=== PATIENT | male | born 1950 | race Caucasian/White ===

== ENCOUNTER 2019-07-19 14:32 | Inpatient (IN) ==
[2019-07-19] MEDS ORDERED: HumuLIN R SUBCUT PRN (15:17)
[2019-07-19] MEDS ORDERED: STERILE WATER IRRIGATION IR ONE (16:09)
[2019-07-19 16:12] LABS: BASOPHILS # (AUTO) 0.1 X10^3/uL (0.0-0.1); BASOPHILS % (AUTO) 0.9 % (0.2-1.0); EOSINOPHILS # (AUTO) 0.1 x10^3/uL (0.0-0.2); EOSINOPHILS % (AUTO) 1.7 % (0.9-2.9); HEMOGLOBIN 13.1 g/dL (13.5-18.0); LYMPHOCYTES # (AUTO) 1.6 X10^3/uL (1.3-2.9); LYMPHOCYTES % (AUTO) 20.5 % (21.0-51.0); MEAN CORPUSCULAR HEMOGLOBIN 28.4 pg (27.0-34.0); MEAN CORPUSCULAR HGB CONC 34.5 g/dL (33.0-35.0); MEAN CORPUSCULAR VOLUME 82.3 fL (80.0-100.0); MEAN PLATELET VOLUME 9.9 fL (7.4-11.0); MONOCYTES # (AUTO) 0.7 x10^3/uL (0.3-0.8); MONOCYTES % (AUTO) 9.4 % (0.0-13.0); NEUTROPHILS # (AUTO) 5.2 x10^3/uL (2.2-4.8); NEUTROPHILS % (AUTO) 67.5 % (42.0-75.0); PLATELET COUNT 178 X10^3/uL (150.0-450.0); RED BLOOD COUNT 4.62 X10^6/uL (4.7-6.0); RED CELL DISTRIBUTION WIDTH 13.3 % (11.6-16.5); WHITE BLOOD COUNT 7.6 X10^3/uL (3.6-10.0)
[2019-07-19 16:16] VITALS: BMI 37.1
[2019-07-19] MEDS ORDERED: XYLOCAINE 1 % (PLAIN) ONE (16:22)
[2019-07-19 16:25] LABS: ALANINE AMINOTRANSFERASE 10 Units/L (12-78); ALBUMIN 3.6 g/dL (3.4-5.0); ALKALINE PHOSPHATASE 55 Units/L (46-116); ASPARTATE AMINO TRANSFERASE 10 Units/L (15-37); BLOOD UREA NITROGEN 8 mg/dL (7-18); CARBON DIOXIDE 27.2 mmol/L (21-32); CHLORIDE 103 mmol/L (98-107); CREATININE 1.03 mg/dL (0.70-1.30); SODIUM 141 mmol/L (136-145); TOTAL PROTEIN 7.2 g/dL (6.4-8.2); eGFR NON BLACK RACES > 60 (>60)
[2019-07-19 16:59] LABS: ERYTHROCYTE SEDIMENTATION RATE 26 MM/HOUR (0-15)
[2019-07-19] MEDS ORDERED: POTASSIUM CHL 60 MEQ/NS 0.45% 500 ML IV PRN (17:21)
[2019-07-19] MEDS ORDERED: POTASSIUM CHL 40 MEQ/NS 0.45% 500 ML IV PRN (17:21)
[2019-07-19] MEDS ORDERED: KLOR-CON PO PRN (17:21)
[2019-07-19] MEDS ORDERED: POTASSIUM CHLORIDE LIQ 20 MEQ UDC PO PRN (17:21)
[2019-07-19] MEDS ORDERED: MICRO K EXTEN CAP 10 MEQ PO PRN (17:21)
[2019-07-19] MEDS ORDERED: K-RIDER 10 MEQ/NS 100 ML 10 MEQ/100 ML BAG IV PRN (17:21)
[2019-07-19] MEDS ORDERED: HEPARIN SODIUM INJ 5000 UNITS IVP ONE ×2 (18:04→19:26)
[2019-07-19] MEDS ORDERED: HEPARIN SODIUM INJ 5000 UNITS ONE (18:07)
--- NOTE | 2019-07-19 18:47 | DR.UPDATE ---
H&P Update History and Physical Update: History and Physical reviewed and patient examined. Changes noted: NO Yes with the following:agree with h&p, pt examined. will place picc Procedures (ALL) - Central Line Placement PCM.CLCO: written consent Time out performed: Yes Patient placed pm monitor/pulse ox: Yes MD prep: mask, gown, gloves, other Centrial line prep: chlorhexidine scrub Local anesthsia used: lidocane 1% Ultrasound used for placement: Yes (right basilic id'd) Central line lumen ininserted: double (5fr powerpicc. trimmed to 47cm, 5cm exposed) Post procedure: good blood return, all ports aspirated, flushed,capped, sterile dressing applied Post procedure xray: tip oc catheter in good position (radiologist reading pending, tip appears to be in SVC), no pneumothorax seen Patient tolerated procedure: Yes Complications: none
[2019-07-19] MEDS ORDERED: ZOFRAN INJ 4 MG VIAL IVP PRN (18:53)
[2019-07-19] MEDS: MORPHINE SULFATE INJ 2 MG INJ IVP PRN (19:15)
[2019-07-19] MEDS: HEPARIN SODIUM IN D5W 25,000 UNITS/500 ML BAG IV PRN (19:30)
[2019-07-19] MEDS: NS 1000 ML 1,000 ML IV SCH (19:39)
--- NOTE | 2019-07-19 19:42 | RAD ---
HISTORY: 68-year-old male for verification of PICC line. Study: Frontal view of the chest. Comparison: CTA chest this date. Findings: Interval placement right upper extremity PICC line with distal tip overlying the superior cavoatrial junction. No other interval change. IMPRESSION: 1. Right upper extremity PICC in apparent good position as above. Reported By:
[2019-07-19] MEDS: K-DUR TAB 20 MEQ PO PRN (19:56)
[2019-07-19] MEDS: MAGNESIUM SULFATE 1 GRAM/100 mL PREMIX 1 GM/100 ML BAG IV PRN ×2 (19:57→21:09)
[2019-07-19] MEDS: SNACK - Diabetic Appropriate PO SCH (19:58)
--- NOTE | 2019-07-19 20:08 | CT ---
HISTORY: Lower extremity DVT Study: CT chest with contrast Comparison: None Technique: Multiple axial images of the chest were obtained from the thoracic inlet to the upper abdomen with the administration of IV contrast. Coronal and sagittal reformatted three-dimensional MIP images were also submitted utilizing CTA protocol. Dose reduction techniques including automated exposure control (AEC) and adjustment of mA and kV were utilized. Findings: Scattered subcentimeter lymph nodes as measured across their short axis are seen within the mediastinum. There is no significant pericardial effusion observed. The thoracic aorta is normal in its contour without evidence for aneurysmal dilatation. No definite focal well-circumscribed filling defects are appreciated within the main pulmonary arteries. Atelectasis and/or scarring are seen within both lower lobes. Otherwise no CT evidence of focal consolidation, pneumothorax, or pleural effusion is identified. Degenerative changes are seen within the visualized spine. IMPRESSION: 1. No definite CT evidence of pulmonary embolism is appreciated as noted above. Reported By:
[2019-07-19] MEDS ORDERED: NORCO 5/325 MG TAB ONE (20:53)
[2019-07-19] MEDS: NORCO 5/325 MG TAB PO PRN (21:10)
[2019-07-20] MEDS: MORPHINE SULFATE INJ 2 MG INJ IVP PRN ×5 (01:28→20:04)
[2019-07-20] MEDS ORDERED: HEPARIN SODIUM INJ 5000 UNITS IVP ONE ×3 (02:08→10:00)
[2019-07-20] MEDS ORDERED: HEPARIN SODIUM INJ 5000 UNITS ONE ×2 (02:11→08:23)
[2019-07-20] MEDS: NORCO 5/325 MG TAB PO PRN ×4 (03:35→23:00)
[2019-07-20] MEDS: K-DUR TAB 20 MEQ PO PRN ×2 (03:35→18:32)
[2019-07-20 06:17] LABS: BASOPHILS # (AUTO) 0.1 X10^3/uL (0.0-0.1); BASOPHILS % (AUTO) 1.1 % (0.2-1.0); EOSINOPHILS # (AUTO) 0.1 x10^3/uL (0.0-0.2); HEMATOCRIT 35.3 % (42.0-54.0); HEMOGLOBIN 12.1 g/dL (13.5-18.0); LYMPHOCYTES # (AUTO) 1.6 X10^3/uL (1.3-2.9); LYMPHOCYTES % (AUTO) 24.9 % (21.0-51.0); MEAN CORPUSCULAR HEMOGLOBIN 28.5 pg (27.0-34.0); MEAN CORPUSCULAR HGB CONC 34.3 g/dL (33.0-35.0); MEAN CORPUSCULAR VOLUME 83.1 fL (80.0-100.0); MEAN PLATELET VOLUME 10.1 fL (7.4-11.0); MONOCYTES # (AUTO) 0.7 x10^3/uL (0.3-0.8); MONOCYTES % (AUTO) 10.8 % (0.0-13.0); NEUTROPHILS # (AUTO) 3.8 x10^3/uL (2.2-4.8); NEUTROPHILS % (AUTO) 61.2 % (42.0-75.0); PLATELET COUNT 169 X10^3/uL (150.0-450.0); RED BLOOD COUNT 4.25 X10^6/uL (4.7-6.0); RED CELL DISTRIBUTION WIDTH 13.3 % (11.6-16.5); WHITE BLOOD COUNT 6.2 X10^3/uL (3.6-10.0)
[2019-07-20] MEDS: NS 1000 ML 1,000 ML IV SCH ×4 (06:39→23:20)
[2019-07-20 07:26] LABS: ALANINE AMINOTRANSFERASE 9 Units/L (12-78); ALKALINE PHOSPHATASE 49 Units/L (46-116); ASPARTATE AMINO TRANSFERASE 10 Units/L (15-37); BLOOD UREA NITROGEN 7 mg/dL (7-18); CALCIUM 8.3 mg/dL (8.5-10.1); CARBON DIOXIDE 26.1 mmol/L (21-32); CHLORIDE 100 mmol/L (98-107); COR CA(FOR HYPOALB) 9.1 mg/dL (8.5-10.1); COR NA(FOR HYPERGLY) 141 mmol/L (136-145); CREATININE 0.98 mg/dL (0.70-1.30); SODIUM 138 mmol/L (136-145); TOTAL PROTEIN 6.4 g/dL (6.4-8.2); eGFR NON BLACK RACES > 60 (>60)
[2019-07-20] MEDS: HEPARIN SODIUM IN D5W 25,000 UNITS/500 ML BAG IV PRN (10:57)
--- NOTE | 2019-07-20 11:34 | PCM.PROG ---
Progress Note Progress Note for Day of Date of Exam: 07/20/19 Subjective Subjective: Pt is a 68 yo m presented as a direct admit from clinic(Dr Krause) after having pain and swelling in his RLE x 3 days. He recently had discontinued Plavix for this week d/t scheduled L rotator cuff surgery that he was to have done today. Venous duplex(07/19/19):Visible and incompressible thrombus material present with complete occlusion to deep venous flow at the level of the distal superficial femoral vein. Pt started on heparin gtt. CT-PE:negative, Coagulation workup pending. -Pt is feeling better today, still complaining on RLE edema and pain. No acute concerns overnight. Past Medical Family Social History Past Med/Fam/Surg Hx: No changes since H&P Allergies: Allergies No Known Drug Allergies Allergy (Verified 07/19/19 15:15) Review of Systems ROS: No change since H&P Vital Signs and I&O's Vital Signs: Temperature 99.6 F Pulse Rate 66 Respiratory Rate 22 Blood Pressure 179/81 O2 Sat by Pulse Oximetry 97 Intake and Output: Intake & Output 07/17/19 07/18/19 07/19/19 07/20/19 23:59 23:59 23:59 23:59 Intake Total 757 / 757 1272.0 / 1272.0 Output Total 850 / 850 550 / 550 Balance -93 / -93 722.0 / 722.0 Physical Exam Oriented: Normal Eyes: Normal Ear: Normal Nose: Normal Respiratory: Normal Cardiovascular: Normal Auscultation: Bowel Sounds: Normal Tenderness: Normal Skin: Normal Musculoskeletal: Leg (1+ pitting edema RLE) Psychiatric: Normal Mood Description: Calm Speech Pattern: Clear and Appropriate Laboratory and Diagnostics Result Diagrams: 07/20/19 06:02 07/20/19 06:02 Labs: Laboratory WBC 6.2 X10^3/uL (3.6-10.0) 07/20/19 06:02 RBC 4.25 X10^6/uL (4.7-6.0) L 07/20/19 06:02 Hgb 12.1 g/dL (13.5-18.0) L 07/20/19 06:02 Hct 35.3 % (42.0-54.0) L 07/20/19 06:02 MCV 83.1 fL (80.0-100.0) 07/20/19 06:02 MCH 28.5 pg (27.0-34.0) 07/20/19 06:02 MCHC 34.3 g/dL (33.0-35.0) 07/20/19 06:02 RDW 13.3 % (11.6-16.5) 07/20/19 06:02 Plt Count 169 X10^3/uL (150.0-450.0) 07/20/19 06:02 MPV 10.1 fL (7.4-11.0) 07/20/19 06:02 Neut % (Auto) 61.2 % (42.0-75.0) 07/20/19 06:02 Lymph % (Auto) 24.9 % (21.0-51.0) 07/20/19 06:02 [place] % (Auto) 10.8 % (0.0-13.0) 07/20/19 06:02 Eos % (Auto) 2.0 % (0.9-2.9) 07/20/19 06:02 Baso % (Auto) 1.1 % (0.2-1.0) H 07/20/19 06:02 Neut # (Auto) 3.8 x10^3/uL (2.2-4.8) 07/20/19 06:02 Lymph # (Auto) 1.6 X10^3/uL (1.3-2.9) 07/20/19 06:02 [place] # (Auto) 0.7 x10^3/uL (0.3-0.8) 07/20/19 06:02 Eos # (Auto) 0.1 x10^3/uL (0.0-0.2) 07/20/19 06:02 Baso # (Auto) 0.1 X10^3/uL (0.0-0.1) 07/20/19 06:02 Absolute Nucleated RBC 0.0 /100WBC 07/20/19 06:02 ESR 26 MM/HOUR (0-15) H 07/19/19 15:55 PT 14.1 SECONDS (11.8-14.3) 07/19/19 15:55 INR Target Range - 07/19/19 15:55 INR 1.13 (0.8-1.3) 07/19/19 15:55 APTT 60.6 SECONDS (22.9-36.5) H 07/20/19 07:45 PTT Comment - 07/20/19 07:45 Sodium 138 mmol/L (136-145) 07/20/19 06:02 Corrected Sodium 141 mmol/L (136-145) 07/20/19 06:02 Potassium 3.4 mmol/L (3.5-5.1) L 07/20/19 06:02 Chloride 100 mmol/L (98-107) 07/20/19 06:02 Carbon Dioxide 26.1 mmol/L (21-32) 07/20/19 06:02 BUN 7 mg/dL (7-18) 07/20/19 06:02 Creatinine 0.98 mg/dL (0.70-1.30) 07/20/19 06:02 Est GFR (MDRD) Af Amer > 60 (>60) 07/20/19 06:02 Est GFR (MDRD) Non-Af > 60 (>60) 07/20/19 06:02 Glucose 212 mg/dL (65-99) H 07/20/19 06:02 POC Glucose (mg/dL) 105 mg/dL (65-99) H 07/20/19 11:04 Calcium 8.3 mg/dL (8.5-10.1) L 07/20/19 06:02 Corrected Calcium 9.1 mg/dL (8.5-10.1) 07/20/19 06:02 Magnesium 2.0 mg/dL (1.7-2.9) 07/20/19 06:02 Total Bilirubin 1.10 mg/dL (0.2-1.0) H 07/20/19 06:02 AST 10 Units/L (15-37) L 07/20/19 06:02 ALT 9 Units/L (12-78) L 07/20/19 06:02 Alkaline Phosphatase 49 Units/L (46-116) 07/20/19 06:02 C-Reactive Protein 79.40 mg/L (0-3.0) H 07/19/19 15:55 Total Protein 6.4 g/dL (6.4-8.2) 07/20/19 06:02 Albumin 3.0 g/dL (3.4-5.0) L 07/20/19 06:02 Globulin 3.4 g/dL (2.5-4.5) 07/20/19 06:02 Albumin/Globulin Ratio 0.9 Ratio (1.1-2.1) L 07/20/19 06:02 Plan (1) Dvt femoral (deep venous thrombosis): Status: Acute Qualifiers: Chronicity: acute Laterality: right Qualified Code(s): I82.411 - Acute embolism and thrombosis of right femoral vein Plan: -Heparin gtt, CT-PE negative,Venous duplex(07/19/19):Visible and incompressible thrombus material present with complete occlusion to deep venous flow at the level of the distal superficial femoral vein. -Coagulation workup pending, Pain control -Continue to monitor, will need to be transitioned to PO NOAC before d/c. (2) Hypertension: Status: Acute Qualifiers: Hypertension type: essential hypertension Qualified Code(s): I10 - Essential (primary) hypertension Plan: Resume home meds (3) Mixed hyperlipidemia: Status: Acute Plan: Resume home meds (4) Diabetes mellitus: Status: Acute Qualifiers: Diabetes mellitus type: type 2 Diabetes mellitus care home insulin use: without long distance billing operator use Diabetes mellitus complication status: with other specified complication Qualified Code(s): E11.69 - Type 2 diabetes mellitus with other specified complication Plan: Resume home medications. (5) CAD (coronary artery disease): Status: Acute Qualifiers: Coronary Disease-Associated Artery/Lesion type: unspecified vessel or lesion type Plan: Hx of PCI, resumed Plavix and ASA (6) Injury of left rotator cuff: Status: Acute Qualifiers: Encounter type: subsequent encounter Qualified Code(s): S46.002D - Unspecified injury of muscle(s) and tendon(s) of the rotator cuff of left shoulder, subsequent encounter
[2019-07-20] MEDS: PROTONIX TAB 40 MG PO SCH (11:47)
[2019-07-20] MEDS: CYMBALTA PO SCH (11:47)
[2019-07-20] MEDS: COREG TAB 12.5 MG PO SCH ×2 (11:47→20:03)
[2019-07-20] MEDS: COZAAR PO SCH (11:47)
[2019-07-20] MEDS ORDERED: MILK OF MAGNESIA PO PRN (15:44)
[2019-07-20] MEDS: COLACE CAP 100 MG PO PRN (16:04)
[2019-07-20] MEDS ORDERED: GLUCOPHAGE ONE (19:51)
[2019-07-20] MEDS: VALIUM PO SCH (20:03)
[2019-07-20] MEDS: GLUCOPHAGE PO SCH (20:03)
[2019-07-20] MEDS: ZOCOR TAB 40 MG PO SCH (20:04)
[2019-07-20] MEDS: SNACK - Diabetic Appropriate PO SCH (21:15)
[2019-07-21] MEDS: MORPHINE SULFATE INJ 2 MG INJ IVP PRN ×3 (01:13→23:15)
[2019-07-21] MEDS: NORCO 5/325 MG TAB PO PRN ×4 (01:14→20:59)
[2019-07-21] MEDS: HEPARIN SODIUM IN D5W 25,000 UNITS/500 ML BAG IV PRN ×2 (01:30→15:00)
[2019-07-21 03:26] LABS: BASOPHILS % (AUTO) 0.7 % (0.2-1.0); EOSINOPHILS # (AUTO) 0.2 x10^3/uL (0.0-0.2); EOSINOPHILS % (AUTO) 3.4 % (0.9-2.9); HEMATOCRIT 34.4 % (42.0-54.0); HEMOGLOBIN 11.7 g/dL (13.5-18.0); LYMPHOCYTES # (AUTO) 1.6 X10^3/uL (1.3-2.9); LYMPHOCYTES % (AUTO) 25.1 % (21.0-51.0); MEAN CORPUSCULAR HEMOGLOBIN 27.9 pg (27.0-34.0); MEAN CORPUSCULAR HGB CONC 33.9 g/dL (33.0-35.0); MEAN CORPUSCULAR VOLUME 82.4 fL (80.0-100.0); MEAN PLATELET VOLUME 9.6 fL (7.4-11.0); MONOCYTES # (AUTO) 0.6 x10^3/uL (0.3-0.8); MONOCYTES % (AUTO) 8.7 % (0.0-13.0); NEUTROPHILS % (AUTO) 62.1 % (42.0-75.0); PLATELET COUNT 180 X10^3/uL (150.0-450.0); RED BLOOD COUNT 4.18 X10^6/uL (4.7-6.0); RED CELL DISTRIBUTION WIDTH 13.1 % (11.6-16.5); WHITE BLOOD COUNT 6.4 X10^3/uL (3.6-10.0)
[2019-07-21 03:33] LABS: ALANINE AMINOTRANSFERASE 10 Units/L (12-78); ALKALINE PHOSPHATASE 49 Units/L (46-116); ASPARTATE AMINO TRANSFERASE 10 Units/L (15-37); BLOOD UREA NITROGEN 7 mg/dL (7-18); CALCIUM 8.5 mg/dL (8.5-10.1); CARBON DIOXIDE 25.5 mmol/L (21-32); CHLORIDE 104 mmol/L (98-107); COR CA(FOR HYPOALB) 9.3 mg/dL (8.5-10.1); COR NA(FOR HYPERGLY) 141 mmol/L (136-145); CREATININE 0.93 mg/dL (0.70-1.30); SODIUM 140 mmol/L (136-145); TOTAL PROTEIN 6.3 g/dL (6.4-8.2); eGFR NON BLACK RACES > 60 (>60)
[2019-07-21] MEDS ORDERED: GLUCOPHAGE ONE ×2 (08:51→19:57)
[2019-07-21] MEDS: PROTONIX TAB 40 MG PO SCH (08:54)
[2019-07-21] MEDS: COREG TAB 12.5 MG PO SCH ×2 (08:54→20:58)
[2019-07-21] MEDS: GLUCOPHAGE PO SCH ×2 (08:55→20:56)
[2019-07-21] MEDS: CYMBALTA PO SCH (09:27)
[2019-07-21] MEDS: ASPIRIN EC 81 MG PO SCH (09:27)
[2019-07-21] MEDS: COZAAR PO SCH (09:27)
[2019-07-21] MEDS: PLAVIX PO SCH (09:28)
--- NOTE | 2019-07-21 10:14 | PCM.PROG ---
Progress Note Progress Note for Day of Date of Exam: 07/21/19 Subjective Subjective: Pt is a 68 yo m presented as a direct admit from clinic(Dr Krause) after having pain and swelling in his RLE x 3 days. He recently had discontinued Plavix for this week d/t scheduled L rotator cuff surgery that he was to have done today. Venous duplex(07/19/19):Visible and incompressible thrombus material present with complete occlusion to deep venous flow at the level of the distal superficial femoral vein. Pt started on heparin gtt. CT-PE:negative, Coagulation workup pending. -Pt has noticed significant improvement in his pain and edema of RLE. He is able to sit upright and have his leg hang down without causing him much pain as before. No acute concerns overnight. Past Medical Family Social History Past Med/Fam/Surg Hx: No changes since H&P Allergies: Allergies No Known Drug Allergies Allergy (Verified 07/19/19 15:15) Review of Systems ROS: Changes notes (describe) ROS changes noted: see HPI Vital Signs and I&O's Vital Signs: Temperature 98.2 F Pulse Rate 61 Respiratory Rate 20 Blood Pressure 141/69 O2 Sat by Pulse Oximetry 96 Intake and Output: Intake & Output 07/18/19 07/19/19 07/20/19 07/21/19 23:59 23:59 23:59 23:59 Intake Total 757 / 757 3999.0 / 3999.0 709 / 709 Output Total 850 / 850 1300 / 1300 175 / 175 Balance -93 / -93 2699.0 / 2699.0 534 / 534 Physical Exam Oriented: Normal Eyes: Normal Ear: Normal Nose: Normal Respiratory: Normal Cardiovascular: Normal Auscultation: Bowel Sounds: Normal Tenderness: Normal Skin: Normal Musculoskeletal: Leg (1+ pitting edema RLE) Psychiatric: Normal Mood Description: Calm Speech Pattern: Clear and Appropriate Laboratory and Diagnostics Result Diagrams: 07/21/19 03:15 07/21/19 03:15 Labs: Laboratory WBC 6.4 X10^3/uL (3.6-10.0) 07/21/19 03:15 RBC 4.18 X10^6/uL (4.7-6.0) L 07/21/19 03:15 Hgb 11.7 g/dL (13.5-18.0) L 07/21/19 03:15 Hct 34.4 % (42.0-54.0) L 07/21/19 03:15 MCV 82.4 fL (80.0-100.0) 07/21/19 03:15 MCH 27.9 pg (27.0-34.0) 07/21/19 03:15 MCHC 33.9 g/dL (33.0-35.0) 07/21/19 03:15 RDW 13.1 % (11.6-16.5) 07/21/19 03:15 Plt Count 180 X10^3/uL (150.0-450.0) 07/21/19 03:15 MPV 9.6 fL (7.4-11.0) 07/21/19 03:15 Neut % (Auto) 62.1 % (42.0-75.0) 07/21/19 03:15 Lymph % (Auto) 25.1 % (21.0-51.0) 07/21/19 03:15 [place] % (Auto) 8.7 % (0.0-13.0) 07/21/19 03:15 Eos % (Auto) 3.4 % (0.9-2.9) H 07/21/19 03:15 Baso % (Auto) 0.7 % (0.2-1.0) 07/21/19 03:15 Neut # (Auto) 4.0 x10^3/uL (2.2-4.8) 07/21/19 03:15 Lymph # (Auto) 1.6 X10^3/uL (1.3-2.9) 07/21/19 03:15 [place] # (Auto) 0.6 x10^3/uL (0.3-0.8) 07/21/19 03:15 Eos # (Auto) 0.2 x10^3/uL (0.0-0.2) 07/21/19 03:15 Baso # (Auto) 0.0 X10^3/uL (0.0-0.1) 07/21/19 03:15 Absolute Nucleated RBC 0.0 /100WBC 07/21/19 03:15 ESR 26 MM/HOUR (0-15) H 07/19/19 15:55 PT 14.1 SECONDS (11.8-14.3) 07/19/19 15:55 INR Target Range - 07/19/19 15:55 INR 1.13 (0.8-1.3) 07/19/19 15:55 APTT 94.0 SECONDS (22.9-36.5) H 07/21/19 09:40 PTT Comment - 07/21/19 09:40 Sodium 140 mmol/L (136-145) 07/21/19 03:15 Corrected Sodium 141 mmol/L (136-145) 07/21/19 03:15 Potassium 3.7 mmol/L (3.5-5.1) 07/21/19 03:15 Chloride 104 mmol/L (98-107) 07/21/19 03:15 Carbon Dioxide 25.5 mmol/L (21-32) 07/21/19 03:15 BUN 7 mg/dL (7-18) 07/21/19 03:15 Creatinine 0.93 mg/dL (0.70-1.30) 07/21/19 03:15 Est GFR (MDRD) Af Amer > 60 (>60) 07/21/19 03:15 Est GFR (MDRD) Non-Af > 60 (>60) 07/21/19 03:15 Glucose 124 mg/dL (65-99) H 07/21/19 03:15 POC Glucose (mg/dL) 114 mg/dL (65-99) H 07/21/19 05:53 Calcium 8.5 mg/dL (8.5-10.1) 07/21/19 03:15 Corrected Calcium 9.3 mg/dL (8.5-10.1) 07/21/19 03:15 Magnesium 2.0 mg/dL (1.7-2.9) 07/20/19 06:02 Total Bilirubin 0.90 mg/dL (0.2-1.0) 07/21/19 03:15 AST 10 Units/L (15-37) L 07/21/19 03:15 ALT 10 Units/L (12-78) L 07/21/19 03:15 Alkaline Phosphatase 49 Units/L (46-116) 07/21/19 03:15 C-Reactive Protein 79.40 mg/L (0-3.0) H 07/19/19 15:55 Total Protein 6.3 g/dL (6.4-8.2) L 07/21/19 03:15 Albumin 3.0 g/dL (3.4-5.0) L 07/21/19 03:15 Globulin 3.3 g/dL (2.5-4.5) 07/21/19 03:15 Albumin/Globulin Ratio 0.9 Ratio (1.1-2.1) L 07/21/19 03:15 Plan (1) Dvt femoral (deep venous thrombosis): Status: Acute Qualifiers: Chronicity: acute Laterality: right Qualified Code(s): I82.411 - Acute embolism and thrombosis of right femoral vein Plan: -Significant improvement in symptoms. -Heparin gtt, CT-PE negative,Venous duplex(07/19/19):Visible and incompressible thrombus material present with complete occlusion to deep venous flow at the level of the distal superficial femoral vein. -Coagulation workup pending, Pain control -Pt will need to be transitioned to PO NOAC before d/c. (2) Hypertension: Status: Acute Qualifiers: Hypertension type: essential hypertension Qualified Code(s): I10 - Essential (primary) hypertension Plan: Resume home meds (3) Mixed hyperlipidemia: Status: Acute Plan: Resume home meds (4) Diabetes mellitus: Status: Acute Qualifiers: Diabetes mellitus complication status: with other specified complication Diabetes mellitus long distance billing operator insulin use: without long distance billing operator use Diabetes mellitus type: type 2 Qualified Code(s): E11.69 - Type 2 diabetes mellitus with other specified complication Plan: Resume home medications. (5) CAD (coronary artery disease): Status: Acute Qualifiers: Coronary Disease-Associated Artery/Lesion type: unspecified vessel or lesion type Plan: Hx of PCI, resumed Plavix and ASA (6) Injury of left rotator cuff: Status: Acute Qualifiers: Encounter type: subsequent encounter Qualified Code(s): S46.002D - Unspecified injury of muscle(s) and tendon(s) of the rotator cuff of left shoulder, subsequent encounter
[2019-07-21] MEDS: NS 1000 ML 1,000 ML IV SCH ×3 (12:08→23:15)
[2019-07-21] MEDS ORDERED: NORCO 5/325 MG TAB PO PRN (18:34)
[2019-07-21] MEDS: SNACK - Diabetic Appropriate PO SCH (20:00)
[2019-07-21] MEDS ORDERED: NORCO 5/325 MG TAB PO SCH (20:00)
[2019-07-21] MEDS: VALIUM PO SCH (20:58)
[2019-07-21] MEDS: ZOCOR TAB 40 MG PO SCH (20:58)
[2019-07-21] MEDS: K-DUR TAB 20 MEQ PO PRN (20:59)
[2019-07-21] MEDS: COLACE CAP 100 MG PO PRN (20:59)
[2019-07-22] MEDS: HEPARIN SODIUM IN D5W 25,000 UNITS/500 ML BAG IV PRN (02:25)
[2019-07-22 04:22] LABS: EOSINOPHILS # (AUTO) 0.2 x10^3/uL (0.0-0.2); EOSINOPHILS % (AUTO) 3.8 % (0.9-2.9); HEMATOCRIT 33.3 % (42.0-54.0); HEMOGLOBIN 11.4 g/dL (13.5-18.0); LYMPHOCYTES # (AUTO) 1.5 X10^3/uL (1.3-2.9); LYMPHOCYTES % (AUTO) 29.3 % (21.0-51.0); MEAN CORPUSCULAR HEMOGLOBIN 28.3 pg (27.0-34.0); MEAN CORPUSCULAR HGB CONC 34.4 g/dL (33.0-35.0); MEAN CORPUSCULAR VOLUME 82.3 fL (80.0-100.0); MEAN PLATELET VOLUME 9.4 fL (7.4-11.0); MONOCYTES # (AUTO) 0.5 x10^3/uL (0.3-0.8); MONOCYTES % (AUTO) 9.3 % (0.0-13.0); NEUTROPHILS # (AUTO) 2.8 x10^3/uL (2.2-4.8); NEUTROPHILS % (AUTO) 56.6 % (42.0-75.0); PLATELET COUNT 185 X10^3/uL (150.0-450.0); RED BLOOD COUNT 4.04 X10^6/uL (4.7-6.0); RED CELL DISTRIBUTION WIDTH 13.4 % (11.6-16.5)
[2019-07-22] MEDS: NORCO 5/325 MG TAB PO PRN ×3 (04:26→21:55)
[2019-07-22 04:29] LABS: ALANINE AMINOTRANSFERASE 11 Units/L (12-78); ALBUMIN 2.7 g/dL (3.4-5.0); ALKALINE PHOSPHATASE 54 Units/L (46-116); ASPARTATE AMINO TRANSFERASE 11 Units/L (15-37); BLOOD UREA NITROGEN 7 mg/dL (7-18); CALCIUM 8.4 mg/dL (8.5-10.1); CARBON DIOXIDE 25.5 mmol/L (21-32); CHLORIDE 104 mmol/L (98-107); COR CA(FOR HYPOALB) 9.4 mg/dL (8.5-10.1); COR NA(FOR HYPERGLY) 142 mmol/L (136-145); CREATININE 0.94 mg/dL (0.70-1.30); SODIUM 140 mmol/L (136-145); TOTAL PROTEIN 6.1 g/dL (6.4-8.2); eGFR NON BLACK RACES > 60 (>60)
[2019-07-22] MEDS: MAGNESIUM SULFATE 1 GRAM/100 mL PREMIX 1 GM/100 ML BAG IV PRN ×2 (05:52→13:11)
[2019-07-22] MEDS: K-DUR TAB 20 MEQ PO PRN (06:27)
[2019-07-22] MEDS: MORPHINE SULFATE INJ 2 MG INJ IVP PRN (06:28)
[2019-07-22] MEDS ORDERED: GLUCOPHAGE ONE ×2 (08:21→20:56)
[2019-07-22] MEDS: ASPIRIN EC 81 MG PO SCH (09:17)
[2019-07-22] MEDS: CYMBALTA PO SCH (09:18)
[2019-07-22] MEDS: COZAAR PO SCH (09:18)
[2019-07-22] MEDS: COREG TAB 12.5 MG PO SCH ×2 (09:18→21:17)
[2019-07-22] MEDS: NS 1000 ML 1,000 ML IV SCH ×3 (09:19→21:19)
[2019-07-22] MEDS: GLUCOPHAGE PO SCH ×2 (09:19→21:18)
[2019-07-22] MEDS: PROTONIX TAB 40 MG PO SCH (09:19)
[2019-07-22] MEDS: PLAVIX PO SCH (09:22)
--- NOTE | 2019-07-22 10:42 | PCM.PROG ---
Progress Note - Progress Note for Day of Date of Exam: 07/22/19 - Subjective Subjective: WAS ADMITTED ON 07/19 DUE TO A RIGHT LOWER EXTREMITY DVT. PATIENT COMPLAINED OF SEVERE PAIN AND SWELLING TO THE RIGHT LOWER EXTREMITY PRIOR TO ADMISSION. PATIENT REPORTED THAT PAIN AND SWELLING STARTED THREE DAYS PRIOR TO ARRIVAL. TODAY, HE IS ALERT AND ORIENTED, LYING IN BED ON MORNING ROUNDS. HE CONTINUES WITH MILD PAIN TO THE RIGHT LOWER EXTREMITY. ON EXAMINATION, HEART IS REGULAR IN RATE AND RHYTHM. BILATERAL LUNGS ARE NOTED WITH DIMINISHED LUNG SOUNDS THROUGHOUT. ABDOMEN IS ROUND, SOFT, AND NON-TENDER WITH NORMAL BOWEL SOUNDS NOTED IN ALL QUADRANTS. RIGHT LOWER EXTREMITY CONTINUES WITH TRACE EDEMA. HIS VITALS THIS MORNING ARE: 98.2-66-19-96%-141/67. LABS WERE OBTAINED. ABNORMAL LAB VALUES INCLUDE THE FOLLOWING: RBC 4.04, HGB 11.4, HCT 33.3, GLUCOSE 185, CALCIUM 8.4, MAGNESIUM 1.5, AST 11, ALT 11, TOTAL PROTEIN 6.1, ALBUMIN 2.7. A HYPERCOAGULABLE PANEL IS PENDING. HE IS CURRENTLY ON A HEPARIN DRIP. TODAY, WE WILL DISCONTINUE THE HEPARIN AND START ELIQUIS 10MG PO BID. OTHERWISE, WE WILL CONTINUE WITH CURRENT PLAN OF CARE. WE PLAN TO FOLLOW UP WITH AM LABS AND CONTINUE TO MONITOR. - Past Medical Family Social History Past Med/Fam/Surg Hx: No changes since H&P Allergies: Allergies No Known Drug Allergies Allergy (Verified 07/19/19 15:15) - Review of Systems ROS: Changes notes (describe) - Vital Signs and I&O's Vital Signs: Temperature 98.2 F Pulse Rate 66 Respiratory Rate 19 Blood Pressure 141/67 O2 Sat by Pulse Oximetry 96 Intake and Output: Intake & Output 07/19/19 07/20/19 07/21/19 07/22/19 11:59 11:59 11:59 11:59 Intake Total 2029.0 / 2029.0 3436 / 3436 5009 / 5009 Output Total 1400 / 1400 925 / 925 2925 / 2925 Balance 629.0 / 629.0 2511 / 2511 2083 / 2083 - Physical Exam Oriented: Normal Eyes: Normal Ear: Normal Nose: Normal Respiratory: Normal Cardiovascular: Normal Auscultation: Bowel Sounds: Normal Palpation: Normal Tenderness: Normal Skin: Normal Musculoskeletal: Leg (TRACE EDEMA RLE ) Psychiatric: Normal Mood Description: Calm Speech Pattern: Clear, Appropriate - Laboratory and Diagnostics Result Diagrams: 07/22/19 04:10 07/22/19 04:10 Labs: Laboratory WBC 5.0 X10^3/uL (3.6-10.0) 07/22/19 04:10 RBC 4.04 X10^6/uL (4.7-6.0) L 07/22/19 04:10 Hgb 11.4 g/dL (13.5-18.0) L 07/22/19 04:10 Hct 33.3 % (42.0-54.0) L 07/22/19 04:10 MCV 82.3 fL (80.0-100.0) 07/22/19 04:10 MCH 28.3 pg (27.0-34.0) 07/22/19 04:10 MCHC 34.4 g/dL (33.0-35.0) 07/22/19 04:10 RDW 13.4 % (11.6-16.5) 07/22/19 04:10 Plt Count 185 X10^3/uL (150.0-450.0) 07/22/19 04:10 MPV 9.4 fL (7.4-11.0) 07/22/19 04:10 Neut % (Auto) 56.6 % (42.0-75.0) 07/22/19 04:10 Lymph % (Auto) 29.3 % (21.0-51.0) 07/22/19 04:10 [place] % (Auto) 9.3 % (0.0-13.0) 07/22/19 04:10 Eos % (Auto) 3.8 % (0.9-2.9) H 07/22/19 04:10 Baso % (Auto) 1.0 % (0.2-1.0) 07/22/19 04:10 Neut # (Auto) 2.8 x10^3/uL (2.2-4.8) 07/22/19 04:10 Lymph # (Auto) 1.5 X10^3/uL (1.3-2.9) 07/22/19 04:10 [place] # (Auto) 0.5 x10^3/uL (0.3-0.8) 07/22/19 04:10 Eos # (Auto) 0.2 x10^3/uL (0.0-0.2) 07/22/19 04:10 Baso # (Auto) 0.0 X10^3/uL (0.0-0.1) 07/22/19 04:10 Absolute Nucleated RBC 0.0 /100WBC 07/22/19 04:10 ESR 26 MM/HOUR (0-15) H 07/19/19 15:55 PT 14.1 SECONDS (11.8-14.3) 07/19/19 15:55 INR Target Range - 07/19/19 15:55 INR 1.13 (0.8-1.3) 07/19/19 15:55 APTT 104.6 SECONDS (22.9-36.5) H 07/22/19 04:10 PTT Comment - 07/22/19 04:10 Sodium 140 mmol/L (136-145) 07/22/19 04:10 Corrected Sodium 142 mmol/L (136-145) 07/22/19 04:10 Potassium 3.5 mmol/L (3.5-5.1) 07/22/19 04:10 Chloride 104 mmol/L (98-107) 07/22/19 04:10 Carbon Dioxide 25.5 mmol/L (21-32) 07/22/19 04:10 BUN 7 mg/dL (7-18) 07/22/19 04:10 Creatinine 0.94 mg/dL (0.70-1.30) 07/22/19 04:10 Est GFR (MDRD) Af Amer > 60 (>60) 07/22/19 04:10 Est GFR (MDRD) Non-Af > 60 (>60) 07/22/19 04:10 Glucose 185 mg/dL (65-99) H 07/22/19 04:10 POC Glucose (mg/dL) 131 mg/dL (65-99) H 07/22/19 06:18 Calcium 8.4 mg/dL (8.5-10.1) L 07/22/19 04:10 Corrected Calcium 9.4 mg/dL (8.5-10.1) 07/22/19 04:10 Magnesium 1.5 mg/dL (1.7-2.9) L 07/22/19 04:10 Total Bilirubin 0.50 mg/dL (0.2-1.0) 07/22/19 04:10 AST 11 Units/L (15-37) L 07/22/19 04:10 ALT 11 Units/L (12-78) L 07/22/19 04:10 Alkaline Phosphatase 54 Units/L (46-116) 07/22/19 04:10 C-Reactive Protein 79.40 mg/L (0-3.0) H 07/19/19 15:55 Total Protein 6.1 g/dL (6.4-8.2) L 07/22/19 04:10 Albumin 2.7 g/dL (3.4-5.0) L 07/22/19 04:10 Globulin 3.4 g/dL (2.5-4.5) 07/22/19 04:10 Albumin/Globulin Ratio 0.8 Ratio (1.1-2.1) L 07/22/19 04:10 - Plan (1) Dvt femoral (deep venous thrombosis) Status: Acute Qualifiers: Chronicity: acute Laterality: right Qualified Code(s): I82.411 - Acute embolism and thrombosis of right femoral vein Plan: -START ELIQUIS 10MG PO BID, D/C Heparin gtt, CT-PE negative. -Coagulation workup pending, Pain control (2) CAD (coronary artery disease) Status: Chronic Plan: Hx of PCI, resumed Plavix and ASA (3) Diabetes mellitus Status: Chronic Qualifiers: Diabetes mellitus type: type 2 Diabetes mellitus racehorse trainer insulin use: unspecified racehorse trainer insulin use status Diabetes mellitus complication status: without complication Qualified Code(s): E11.9 - Type 2 diabetes mellitus without complications Plan: Resume home medications. (4) Hypertension Status: Chronic Qualifiers: Hypertension type: essential hypertension Plan: Resume home meds (5) Mixed hyperlipidemia Status: Chronic Plan: Resume home meds
[2019-07-22] MEDS: ELIQUIS PO SCH ×2 (11:19→21:18)
[2019-07-22] MEDS: SNACK - Diabetic Appropriate PO SCH (20:52)
[2019-07-22] MEDS: ZOCOR TAB 40 MG PO SCH (21:18)
[2019-07-22] MEDS: VALIUM PO SCH (21:18)
[2019-07-23] MEDS: NORCO 5/325 MG TAB PO PRN (03:09)
[2019-07-23 06:20] LABS: BASOPHILS # (AUTO) 0.1 X10^3/uL (0.0-0.1); BASOPHILS % (AUTO) 1.3 % (0.2-1.0); EOSINOPHILS # (AUTO) 0.2 x10^3/uL (0.0-0.2); EOSINOPHILS % (AUTO) 4.6 % (0.9-2.9); HEMATOCRIT 34.7 % (42.0-54.0); HEMOGLOBIN 11.8 g/dL (13.5-18.0); LYMPHOCYTES # (AUTO) 1.5 X10^3/uL (1.3-2.9); MEAN CORPUSCULAR HEMOGLOBIN 27.9 pg (27.0-34.0); MEAN CORPUSCULAR HGB CONC 34.1 g/dL (33.0-35.0); MEAN CORPUSCULAR VOLUME 81.7 fL (80.0-100.0); MEAN PLATELET VOLUME 9.3 fL (7.4-11.0); MONOCYTES # (AUTO) 0.5 x10^3/uL (0.3-0.8); MONOCYTES % (AUTO) 9.8 % (0.0-13.0); NEUTROPHILS # (AUTO) 2.9 x10^3/uL (2.2-4.8); NEUTROPHILS % (AUTO) 55.3 % (42.0-75.0); PLATELET COUNT 205 X10^3/uL (150.0-450.0); RED BLOOD COUNT 4.24 X10^6/uL (4.7-6.0); RED CELL DISTRIBUTION WIDTH 13.6 % (11.6-16.5); WHITE BLOOD COUNT 5.2 X10^3/uL (3.6-10.0)
[2019-07-23 06:41] LABS: ALANINE AMINOTRANSFERASE 13 Units/L (12-78); ALKALINE PHOSPHATASE 53 Units/L (46-116); ASPARTATE AMINO TRANSFERASE 14 Units/L (15-37); BLOOD UREA NITROGEN 7 mg/dL (7-18); CALCIUM 8.8 mg/dL (8.5-10.1); CARBON DIOXIDE 24.6 mmol/L (21-32); CHLORIDE 105 mmol/L (98-107); COR CA(FOR HYPOALB) 9.6 mg/dL (8.5-10.1); CREATININE 0.85 mg/dL (0.70-1.30); SODIUM 140 mmol/L (136-145); TOTAL PROTEIN 6.4 g/dL (6.4-8.2); eGFR NON BLACK RACES > 60 (>60)
[2019-07-23] MEDS ORDERED: GLUCOPHAGE ONE (08:56)
[2019-07-23] MEDS: COREG TAB 12.5 MG PO SCH (09:05)
[2019-07-23] MEDS: GLUCOPHAGE PO SCH (09:05)
[2019-07-23] MEDS: ASPIRIN EC 81 MG PO SCH (09:05)
[2019-07-23] MEDS: PROTONIX TAB 40 MG PO SCH (09:05)
[2019-07-23] MEDS: COZAAR PO SCH (09:06)
[2019-07-23] MEDS: CYMBALTA PO SCH (09:06)
[2019-07-23] MEDS: PLAVIX PO SCH (09:06)
[2019-07-23] MEDS: ELIQUIS PO SCH (09:06)
[2019-07-23] MEDS: K-DUR TAB 20 MEQ PO PRN (09:07)
[2019-07-23 11:13] VITALS: BP 180/79
[2019-07-23] MEDS: NS 1000 ML 1,000 ML IV SCH (11:28)
[2019-07-23] MEDS ORDERED: COZAAR PO ONE (11:41)
[2019-07-24 07:04] LABS: ANTI-NUCLEAR ANTIBODY TEST None Detected (None Detected)
[2019-07-25 06:49] LABS: PROTEIN C ACTIVITY 123 % (83-168)
[2019-07-27 23:15] LABS: PROTHROMBIN G20210A Negative
== END 2019-07-23 12:50 | disposition home or self-care (01) | DRG 301 ==
LOC: ICU 14:49 → MED/SURG 07-22 17:19 → ICU 07-22 17:37
PROVIDERS: ADMIT Internal Medicine; ATTEND Internal Medicine
DX: I82.411 Acute embolism and thrombosis of right femoral vein; I25.10 Atherosclerotic heart disease of native coronary artery without angina pectoris; I87.2 Venous insufficiency (chronic) (peripheral); E78.2 Mixed hyperlipidemia; X58.XXXD Exposure to other specified factors, subsequent encounter; S46.002D Unspecified injury of muscle(s) and tendon(s) of the rotator cuff of left shoulder, subsequent encounter; I10 Essential (primary) hypertension; E11.65 Type 2 diabetes mellitus with hyperglycemia; R60.0 Localized edema
CPT/HCPCS: 36415; 71010; 71045; 71275; 80053; 81240; 82615; 83090; 83735; 84132; 85025; 85300; 85303; 85305; 85306; 85307; 85597; 85610; 85613; 85635; 85652; 85670; 85730; 85732; 86038; 86140; 86308; A4216; A4222; J1644; J2270; J3475; J7030